=== PATIENT | female | born 1955 | race Caucasian/White ===

== ENCOUNTER 2018-05-11 10:37 | Outpatient (CLI) | payer BC, SELFPAY ==
--- NOTE | 2018-05-11 10:20 | DI.RAD_ITS ---
SYMPTOM/DIAGNOSIS: PNEUMONIA, J18.9 PA AND LATERAL CHEST: The heart is normal in size. The lungs are clear. The mediastinal structures and pleura appear intact. CONCLUSION: Normal chest.
[2018-05-11 11:04] LABS: Abs Immature Grans 0.01 k/cumm (0.0-0.09); Absolute Basophil Count 0.03 k/cumm (0.0-0.2); Absolute Eosinophil Count 0.17 k/cumm (0.0-0.7); Absolute Lymphocyte Count 2.63 k/cumm (1.2-3.4); Absolute Neutrophil Count 3.24 k/cumm (1.2-6.7); Basophils % 0.4; Eosinophils % 2.5; HCT 43.8 % (36.0-46.0); HGB 14.3 g/dL (12.0-15.5); Immature Grans % 0.1; Lymphocytes % 39.4; Mean Corp. HGB Concentration 32.6 g/dL (32.0-36.0); Mean Corpuscular Hemoglobin 31.3 pg (27.0-33.0); Mean Corpuscular Volume 95.8 fL (80-95); Mean Platelet Volume 9.9 fL (8.0-11.0); Neutrophils % 48.6; Platelet Count 284 x1000/uL (130-400); RBC 4.57 m/cumm (4.00-5.20); RBC Distribution Width 13.5 % (11.7-14.6); White Blood Cell Count 6.68 k/cumm (4.4-10.8)
[2018-05-11 12:35] LABS: C-Reactive Protein 1.07 mg/dL (0.0-0.3); Glucose 99 mg/dL (70-100); TSH 1.65 uIU/mL (0.358-3.74)
== END 2018-05-11 10:57 ==
PROVIDERS: PCP Emergency Medicine; Visit Provider Emergency Medicine
DX: J18.9 Pneumonia, unspecified organism (principal); R53.83 Other fatigue
CPT/HCPCS: 36415; 82947; 71046; 84443; 85025; 86140

== ENCOUNTER 2020-05-12 18:34 | Outpatient (REF) | payer BC, SELFPAY ==
[2020-05-14 18:51] LABS: Patient Race White; SARS-CoV-2 RNA Undetected (Undetected); SARS-CoV-2 Specimen Source Nasal
== END 2020-05-12 18:54 ==
LOC: LBN 18:34
PROVIDERS: PCP Emergency Medicine; Visit Provider Nurse Practitioner
DX: Z11.9 Encounter for screening for infectious and parasitic diseases, unspecified (principal)
CPT/HCPCS: U0003

== ENCOUNTER 2020-09-14 14:10 | Outpatient (REF) | payer BC, SELFPAY ==
[2020-09-16 18:40] LABS: COVID-19 RT-PCR UVMMC Result Negative (Negative)
== END 2020-09-14 14:11 | disposition home or self-care (01) ==
LOC: LBN 14:10
PROVIDERS: PCP Emergency Medicine; Visit Provider Family Medicine
DX: Z20.822 Contact with and (suspected) exposure to COVID-19 (principal)
CPT/HCPCS: U0003

== ENCOUNTER 2021-10-29 13:14 | Outpatient (CLI) | payer BC, SELFPAY ==
[2021-10-29 10:46] LABS: Anion Gap 9.3 mmol/L (3-11); BUN 15 mg/dL (7-18); CO2 24.7 mmol/L (21.0-32.0); CREATININE 0.8 mg/dL (0.55-1.02); Calcium 9.1 mg/dL (8.5-10.1); Chloride 106 mmol/L (98-107); Glucose 131 mg/dL (74-106); Potassium 3.9 mmol/L (3.5-5.1); Sodium 140 mmol/L (136-145)
== END 2021-10-29 13:15 | disposition home or self-care (01) ==
LOC: LBO 13:18
PROVIDERS: PCP Family Medicine; Visit Provider Family Medicine
DX: U07.1 COVID-19 (principal); Z51.81 Encounter for therapeutic drug level monitoring
CPT/HCPCS: 36415; 80048

== ENCOUNTER → 2022-03-30 01:36 | Outpatient (CLI) | payer BC, SELFPAY ==
--- NOTE | 2022-03-30 12:23 | DI.MAMMO_ITS ---
Exam(s) MAMMO SCREENING EXAM: MAMMO SCREENING CLINICAL HISTORY: screening,Z12.39. TECHNIQUE: Bilateral full field digital CC and MLO mammographic images were obtained with 3D tomosyn thesis and utilizing computer aided detection (CAD). COMPARISON: Prior mammograms were reviewed, the most recent being 2015. FINDINGS: There are no new spiculated masses nor malignant appearing microcalcification groups. There is no significant architectural distortion nor skin thickening-retraction. IMPRESSION: No radiographic evidence of malignancy. BI-RADS Category 1 - Negative Breast Density - Category B - Scattered areas of fibroglandular density Breast density Category C or D implies that the patient has dense breast tissue. Dense breast tissue can make it harder to find cancer on a mammogram. Dense breast tissue is also associated with an incr eased risk of breast cancer. This information about the result of the mammogram report was provided to the patient to raise their awareness. Use this report when you speak with the patient about their risks for breast cancer, which includes their family history. At that time, you may recommend additional screening tests (Ultrasoun d or MRI) as these tests may add significant information. A negative radiographic report should not delay biopsy if a dominant or clinically suspicious mass is present. Up to ten percent of cancers are not identified on mammography. A negative report may reinforce clinical impression. Adenosis and dense breasts may obscure an underlying neoplasm. False positive reports average 6 to 10%. Patient will receive a letter notifying them of these results.
== END ==
PROVIDERS: PCP Nurse Practitioner Family; Visit Provider Nurse Practitioner Family
DX: Z12.31 Encounter for screening mammogram for malignant neoplasm of breast (principal)
CPT/HCPCS: 77063; 77067

== ENCOUNTER → 2024-01-05 00:05 | Outpatient (CLI) | payer MEDICARE, SELFPAY ==
--- NOTE | 2024-01-05 07:31 | DI.CT_ITS ---
Exam(s) CT CHEST WO EXAM: CT CHEST WO CLINICAL HISTORY: continued cough,R05.9,J49.909,ASTHMA. TECHNIQUE: Imaging protocol: Axial computed tomography images were obtained and coronal and sagittal reformatted images were created and reviewed. COMPARISON: CR XR CHEST 2V PA LATERAL from 05/11/2018 FINDINGS: Tracheobronchial tree: Patent where visualized. There is mild bronchial wall thickening seen in the l ower lobes and mild bronchiectasis seen in the left lower lobe. Atelectasis is seen in the lower lob es. Pulmonary parenchyma: There is consolidation volume loss in the right middle lobe. There is mucous p lugging seen in the airway centrally. No noncalcified pulmonary nodules are present. Mediastinum and Margaret: No dominant adenopathy or fluid collection. The esophagus is unremarkable.There is a small hiatal hernia. Thyroid gland: Unremarkable. Pleura: No effusion or pneumothorax. Heart: The heart is not dilated. Coronary artery calcification is present. No pericardial effusion. Aorta: Thoracic aorta non-dilated. Atherosclerotic calcification is present. Upper abdomen: Unremarkable. Lymph nodes: Within normal limits. Soft tissues: Unremarkable. Bones:Within normal limits for the patient's age. IMPRESSION: 1. There is a consolidation in the right middle lobe with volume loss. This may represent atelectasi s or pneumonia. There is mucous plugging seen in the airway branches of the tracheobronchial tree to the right middle lobe. 2. Mild bronchial wall thickening predominantly in the lower lobes with a question of bronchiectasis in the left lower lobe. Inflammatory infectious process should be considered. RADIATION DOSE DELIVERED: Total DLP Total DLP Total DLP Total DLP DATA REPOSITORY: All CT scans at this facility are submitted to the National Radiology Data Registry (NRDR) Dose Index Registry (DIR) with the [employer] ([employer]). RADIATION OPTIMIZATION: All CT scans at this facility use at least one of these dose optimization te chniques: automated exposure control; mA and/or kV adjustment per patient size (includes targeted exa ms where dose is matched to clinical indication); or iterative reconstruction.
== END ==
PROVIDERS: PCP Nurse Practitioner Family; Visit Provider Nurse Practitioner Family
DX: J45.909 Unspecified asthma, uncomplicated (principal); R05.9 Cough, unspecified; R91.8 Other nonspecific abnormal finding of lung field
CPT/HCPCS: 71250

== ENCOUNTER → 2024-01-05 00:22 | Outpatient (CLI) | payer MEDICARE, SELFPAY ==
--- NOTE | 2024-01-05 06:30 | DI.US_ITS ---
APPROVED REPORT EXAM: Comprehensive 2D, Doppler, and color-flow Echocardiogram Patient Location: Out-Patient Jewelry Repairer: Michael Alejandra RDCS (AE) Indications: Continued cough, strong family history of heart disease, fatigue, SOB, substernal chest pain Conclusion Normal left ventricular wall thickness and chamber size. Ejection fraction 55 to 60%. Wall motion i s normal Normal right ventricular size and function Both atria are normal in size There is no structural or hemodynamically significant valvular disease Wall motion Left Ventricle The left ventricle is normal size. The left ventricular systolic function is normal. The left ventric ular ejection fraction is within the normal range. There is normal left ventricular wall thickness. T here is normal LV segmental wall motion. There is no ventricular septal defect visualized. LVEF is 55 -60%. Right Ventricle The right ventricle is normal size. The right ventricular systolic function is normal. Atria The left atrium size is normal. The right atrium size is normal. The interatrial septum is intact wit h no evidence for an atrial septal defect. Aortic Valve The aortic valve is normal in structure. Aortic valve is trileaflet. There is no aortic valvular sten osis. No aortic regurgitation is present. Mitral Valve The mitral valve is normal in structure. No evidence of mitral valve stenosis. Trace mitral regurgita tion. Tricuspid Valve The tricuspid valve is normal in structure. There is no tricuspid valve stenosis. Trace tricuspid reg urgitation. Unable to assess PA pressure. Pulmonic Valve The pulmonary valve is normal in structure. There is no pulmonic valvular stenosis. Trace pulmonic re gurgitation. Great Vessels The aortic root is normal in size. The ascending aorta is normal in size. Aortic arch is normal in ca liber. IVC is normal in size and collapses >50% with inspiration. Pericardium There is no pericardial effusion. 2D Dimensions IVSD d PLAX 0.57 cm F: 0.6-1.0 Ao Root d 2.73 cm F: 2.7 - 3.3 LVPW d PLAX 0.56 cm F: 0.6 - 1.0 Ao Asc Diam d 2.87 cm F: 2.3 - 3.1 LVID d PLAX 4.69 cm F: 3.8 - 5.2 LVDs 3.18 cm F: 2.2 - 3.5 LV EF Teichholz 60.4 % FS 32.21 % LV EDV (Teich) 101.9 mL LV ESV (Teich) 40.4 mL Stroke Vol Index (Teich) 35.20 M-Mode TAPSE 2.28 cm (M/F) >1.7 Auto EF LV EDV A4C 77.3 mL LV EDV A2C 67.6 mL LV EDV BP 73.3 mL LV ESV A4C 34.6 mL LV ESV A2C 29.4 mL LV ESV BP 31.9 mL LVEF(%) A4C 55.2 % LVEF(%) A2C 56.4 % LVEF(%) BP 56.5 % LV SV A4C 42.7 ml LV SV A2C 38.1 ml LV SV BP 41.4 ml LV CO A4C 3.0 L/min LV CO A2C 2.1 L/min LV CO BP 2.5 L/min HR A4C 69.37 BPM HR A2C 55.29 BPM LV EDV Index (BP) LA Volume LA Length A4C 4.9 cm LA Length A2C 4.8 cm LA Area A4C s 13.38 cm2 LA Area A2C s 16.72 cm2 LA Vol A4C A-L 31.14 mL LA Vol A2C A-L 49.44 mL LA Vol Biplane A-L 39.6 mL LA Vol/BSA A4C A-L LA Vol/BSA A2C A-L LA Vol/BSA BP A-L 22.6 mL/m2 LA Vol A4C MOD 29.8 mL LA Vol A2C MOD 46.0 mL LA Vol BP MOD 37.2 mL RA Volume RA Area A4C 7.8 cm2 RA ESV A4C (A-L) 16.4mL RA Vol/BSA A4C A-L RA Length A4C 3.2 cm RA ESV A4C (MOD) 16.3mL LV Diastology MV E' medial 0.093 (>0.07 m/s) MV E Vmax 0.81 (0.4-1.3 m/s) MV E/E' MED 8.70 (<14) MV A Vmax 1.20 (0.4-1.3 m/s) MV E' lateral 0.097 (>0.1 m/s) E/A Ratio 0.7 MV E/E' LAT 8.36 (<14) MV E' Average 0.095 m/s MV E/E'(average) 8.53 Aortic Valve AoV Vmax 1.31 m/s LVOT Vmax 1.30 m/s AoV Peak Grad 6.9 mmHg LVOT Peak Grad 6.8 mmHg AoV Area (Vmax) 2.48 cm2 LVOT VTI 0.259 m AoV VTI 0.306 m LVOT Mean Grad 3.2 mmHg AoV Mean Messi. 0.87 m/s LVOT SV 64.71 mL AoV Mean Grad 3.5 mmHg LVOT Diam s 1.75 cm AoV Area (VTI) 2.11 cm2 AV Regurg Peak Gr. 6.88 mmHg Velocity Ratio 0.99 Mitral Valve MV DT 216 (160-240 msec) MV Vmax TIPS 1.25 m/s MV Mean Grad 2.2 (<2mmHg) MV VTI 0.309 m Pulmonary Valve PV Vmax 1.13 (0.5-1.5 m/s) RVOT Vmax 0.86 m/s PV Peak Grad 5.1 mmHg RVOT Peak Gr. 3.0 mmHg PV Mean Messi 0.77 m/s RVOT VTI 0.185 m PV Mean Grad 2.7 mmHg RVOT Mean Gr. 1.4 mmHg
== END ==
PROVIDERS: PCP Nurse Practitioner Family; Visit Provider Nurse Practitioner Family
DX: R53.83 Other fatigue (principal); R05.9 Cough, unspecified; Z82.49 Family history of ischemic heart disease and other diseases of the circulatory system; R07.2 Precordial pain; R06.02 Shortness of breath
CPT/HCPCS: 93306

== ENCOUNTER 2024-01-12 02:15 | Outpatient (CLI) | payer MEDICARE, SELFPAY ==
[2024-01-12 12:34] LABS: Abs Immature Grans 0.02 10^3/uL (0.0-0.06); Absolute Basophil Count 0.06 10^3/uL (0.0-0.2); Absolute Eosinophil Count 0.15 10^3/uL (0.0-0.7); Absolute Lymphocyte Count 2.29 10^3/uL (1.2-3.4); Absolute Monocyte Count 0.64 10^3/uL (0.1-0.8); Absolute Neutrophil Count 4.01 10^3/uL (1.2-6.7); Basophils % 0.8 %; Eosinophils % 2.1 %; HCT 40.8 % (36.0-46.0); Immature Grans % 0.3 %; Lymphocytes % 31.9 %; MCH 28.6 pg (27.0-33.0); MCHC 31.9 % (32.0-36.0); MCV 90 fL (80-95); MPV 9.7 fL (8.0-11.0); Monocytes % 8.9 %; Platelet Count 294 10^3/uL (130-400); RBC 4.55 10^6/uL (3.93-5.22); RDW 14.4 % (11.7-14.6); RDW-SD 47.2 fL; WBC 7.17 10^3/uL (4.4-10.8)
[2024-01-12 13:10] LABS: ALT 30 U/L (14-59); AST 19 U/L (15-37); Albumin 3.3 g/dL (3.4-5.0); Alkaline Phosphatase 73 U/L (46-116); BUN 11 mg/dL (7-18); CREATININE 0.7 mg/dL (0.55-1.02); Calcium 8.5 mg/dL (8.5-10.1); Chloride 107 mmol/L (98-107); Estimated GFR 95.32 (mL/min/1.73m2); Glucose 100 mg/dL (74-106); NT-proBNP 67 pg/mL (<300); Potassium 3.8 mmol/L (3.5-5.1); Sodium 141 mmol/L (136-145); TSH (W/Ref FT4) 1.91 uIU/mL (0.36-3.74); Total Protein 7.2 g/dL (6.4-8.2)
== END 2024-01-12 02:16 | disposition home or self-care (01) ==
LOC: LBO 02:16
PROVIDERS: PCP Nurse Practitioner Family; Visit Provider Nurse Practitioner Family
DX: J45.909 Unspecified asthma, uncomplicated (principal); Z82.49 Family history of ischemic heart disease and other diseases of the circulatory system; R05.9 Cough, unspecified; R53.83 Other fatigue
CPT/HCPCS: 36415; 80053; 83880; 84443; 85025

== ENCOUNTER 2024-04-03 02:12 | Outpatient (CLI) | payer MEDICARE, SELFPAY | END 2024-04-03 02:32 | LOC: DI 02:13 | PROVIDERS: PCP Nurse Practitioner Family; Visit Provider Nurse Practitioner Family | DX: Z12.31 Encounter for screening mammogram for malignant neoplasm of breast (principal) | CPT/HCPCS: 77063; 77067 ==

== ENCOUNTER → 2024-04-05 08:28 | Outpatient (BNVA) | payer MEDICARE, SELFPAY | PROVIDERS: PCP Nurse Practitioner Family; Referring Provider Nurse Practitioner Family; Visit Provider Student in an Organized Health Care Education/Training Program | DX: Z12.11 Encounter for screening for malignant neoplasm of colon (principal); Z86.0100 Personal history of colon polyps, unspecified ==

== ENCOUNTER 2024-04-10 00:50 | Outpatient (CLI) | payer MEDICARE, SELFPAY ==
--- NOTE | 2024-04-10 | DI.CT_ITS ---
Exam(s) CT CHEST W EXAM: CT CHEST W CLINICAL HISTORY: F/U RML PNEUMONIA,SUSPECT RT MIDDLE LOBE SYNDROME,R98.19. TECHNIQUE: Multi planar reconstructions were performed. CONTRAST MATERIAL: Omnipaque 350; 70 cc COMPARISON: CR XR CHEST 2V PA LATERAL from 05/11/[address] scan performed 01/05/2024. FINDINGS: CHEST: LUNGS: There is a significant area of infiltrate in the posterior basal segment of the left lower lob e, not associated with cavitation or pleural effusion. Not affecting the superior segment of the lef t lower lobe and there is no infiltrate in the left upper lobe nor in the lingular segment of the lef t lung. In the opposite-right lung of the right upper lobe appears unremarkable and there are no significant focal findings the in the right lower lobe. However, there is again noted some volume loss in the ri ght middle lobe which appears similar to 01/05/2024. Also some atelectasis in the posterior basal seg ment of the right lower lobe which is unchanged. MEDIASTINUM: There is no hilar nor mediastinal adenopathy. Visualized thyroid unremarkable. No axill willy adenopathy. Small hiatal hernia noted, similar to previous CARDIAC: Heart size is normal. There is no pericardial effusion.Coronary artery calcification is not ed. Caliber of thoracic aorta is within normal limits. No dissection. VISUALIZED UPPER ABDOMEN:There are no significant adrenal masses. Spleen size normal. Hiatal hernia again noted. OSSEOUS: No fractures. No lytic nor blastic osseous lesions evident.. IMPRESSION: 1. Compared to the prior CT scan of 01/05/2024 there is again noted some volume loss and consolidatio n the right middle lobe most probably related to mucous plugging in the airway at this level. 2. There is a prominent area of new infiltrate in the left lower lobe involving the posterior basal s egment, not previously present. No pleural effusions. No obvious adenopathy. 3. Atelectasis in the opposite-right lung base is unchanged. RADIATION DOSE DELIVERED: 122.83mGy.cm Total DLP DATA REPOSITORY: All CT scans at this facility are submitted to the National Radiology Data Registry (NRDR) Dose Index Registry (DIR) with the [employer] (ACR). RADIATION OPTIMIZATION: All CT scans at this facility use at least one of these dose optimization te chniques: automated exposure control; mA and/or kV adjustment per patient size (includes targeted exa ms where dose is matched to clinical indication); or iterative reconstruction.
[2024-04-10 13:31] LABS: Estimated GFR 62.13 (mL/min/1.73m2)
[2024-04-10] MEDS: Omnipaque 350 MG/ML 100 ML BTL 70 ML IJ (14:29)
[2024-04-10] MEDS: Normal Saline - Diluent 50 ML VIAL IJ (14:29)
== END 2024-04-10 01:10 ==
LOC: DI 00:50
PROVIDERS: PCP Nurse Practitioner Family; Visit Provider Internal Medicine Critical Care Medicine
DX: Z01.812 Encounter for preprocedural laboratory examination (principal); J98.11 Atelectasis
CPT/HCPCS: 71260; 82565; J3490

== ENCOUNTER → 2025-01-09 10:05 | Outpatient (BNVA) | payer MEDICARE, SELFPAY | PROVIDERS: PCP Nurse Practitioner Family; Referring Provider Nurse Practitioner Family; Visit Provider Physician Assistant Surgical | DX: J47.9 Bronchiectasis, uncomplicated (principal); J45.909 Unspecified asthma, uncomplicated; A31.0 Pulmonary mycobacterial infection | CPT/HCPCS: 99215; 94618 ==

== ENCOUNTER 2025-03-17 14:00 | Outpatient (RCR) | payer MEDICARE, SELFPAY | END 2025-04-11 23:59 | disposition home or self-care (01) | LOC: PRC 14:00 | PROVIDERS: PCP Nurse Practitioner Family; Visit Provider Internal Medicine Pulmonary Disease | DX: J47.9 Bronchiectasis, uncomplicated (principal); J45.909 Unspecified asthma, uncomplicated; A31.0 Pulmonary mycobacterial infection; Z51.89 Encounter for other specified aftercare | CPT/HCPCS: 94626 ==